=== PATIENT | male | born 1955 | race Caucasian/White ===

== ENCOUNTER → 2018-09-01 | Outpatient (CLI) | payer BC | LOC: OD 10:50 | PROVIDERS: ATTEND Otolaryngology | DX: J30.9 Allergic rhinitis, unspecified (principal) | CPT/HCPCS: 36415; 82785; 86003 ==

== ENCOUNTER 2018-11-14 06:06 | Observation (INO) | payer BC ==
[2018-11-14] MEDS ORDERED: ASPIRIN 81 MG TABLET, CHEWABLE PO ONE (06:23)
--- NOTE | 2018-11-14 06:33 | ER Document Report ---
ED General - General Chief Complaint: Chest Pain Stated Complaint: CHEST PAIN Time Seen by Provider: 11/14/18 06:28 Primary Care Provider: KRISTEN TRINH DO [ASSOCIATE] - Follow up as needed TRAVEL OUTSIDE OF THE [place] IN LAST 30 DAYS: No - HPI Patient complains to provider of: chest pain Notes: 63-year-old male presents with now resolved 8/10 crushing chest pain radiated to his left jaw and left arm. The pain woke him from sleep. Was associated with shortness of breath and diaphoresis. Denies nausea or vomiting. At this time patient states he is pain-free assistance resolved. Patient has history of hypertension, no diabetes, no hyperlipidemia, history of tobacco use. Family history of myocardial infarctions. - Related Data Allergies/Adverse Reactions: lisinopril Allergy (Severe, Verified 11/14/18 06:34) Anaphylaxis amlodipine [From Norvasc] Allergy (Intermediate, Verified 11/14/18 06:34) Past Medical History - Social History Smoking Status: Former Smoker Family History: Reviewed & Not Pertinent - Past Medical History Cardiac Medical History: Reports: Hx Hypertension Endocrine Medical History: Reports: Hx Hypothyroidism Review of Systems - Review of Systems Notes: REVIEW OF SYSTEMS: CONSTITUTIONAL: -fevers, -chills EENT: -eye pain, -difficulty swallowing, -nasal congestion CARDIOVASCULAR: positive chest pain diaphoresis RESPIRATORY: -cough, -SOB GASTROINTESTINAL: -abdominal pain, -nausea, -vomiting, -diarrhea GENITOURINARY: -dysuria, -hematuria MUSCULOSKELETAL: -back pain, -neck pain SKIN: -rash or skin lesions. HEMATOLOGIC: -easy bruising or bleeding. LYMPHATIC: -swollen, enlarged glands. NEUROLOGICAL: -altered mental status or loss of consciousness, -headache, - neurologic symptoms PSYCHIATRIC: -anxiety, -depression. ALL OTHER SYSTEMS REVIEWED AND NEGATIVE. Physical Exam - Vital signs Vitals: Temp Pulse Resp BP Pulse Ox 98.6 F 70 12 178/110 H 98 11/14/18 06:19 11/14/18 06:19 11/14/18 06:19 11/14/18 06:19 11/14/18 06:19 - Notes Notes: PHYSICAL EXAMINATION: GENERAL: Well-appearing, well-nourished and in no acute distress. HEAD: Atraumatic, normocephalic. EYES: Pupils equal round and reactive to light, extraocular movements intact, sclera anicteric, conjunctiva are normal. ENT: nares patent, oropharynx clear without exudates. Moist mucous membranes. NECK: Normal range of motion, supple without lymphadenopathy LUNGS: Breath sounds clear to auscultation bilaterally and equal. No wheezes rales or rhonchi. HEART: Regular rate and rhythm without murmurs ABDOMEN: Soft, nontender, normoactive bowel sounds. No guarding, no rebound. No masses appreciated. EXTREMITIES: Normal range of motion, no pitting or edema. No cyanosis. NEUROLOGICAL: Cranial nerves grossly intact. Normal speech, normal gait. Norm al sensory and motor exams. PSYCH: Normal mood, normal affect. SKIN: Warm, Dry, normal turgor, no rashes or lesions noted. Course - Re-evaluation Re-evalutation: 11/14/18 06:33 63-year-old man with multiple risk factors for coronary artery disease presents with concerning story for crushing chest pain with radiation to his jaw and left arm 11/14/18 07:33 Patient's EKG is no ischemic changes normal sinus rhythm, no ST elevations or depressions, no pathologic T wave inversions. Recent extensive initial lab work-up unremarkable. Troponin 0 0.045. Patient will be admitted to the hospital for further evaluation of his chest pain - Vital Signs Vital signs: Temp Pulse Resp BP Pulse Ox 98.6 F 70 21 H 148/100 H 94 11/14/18 06:19 11/14/18 06:19 11/14/18 07:01 11/14/18 07:01 11/14/18 07:01 - Laboratory Result Diagrams: 11/14/18 06:30 11/14/18 06:30 Laboratory results interpreted by me: 11/14/18 06:30 Glucose 115 H AST 14 L ALT 20 L Discharge - Discharge Clinical Impression: Chest pain Qualifiers: Chest pain type: unspecified Qualified Code(s): R07.9 - Chest pain, unspecified Condition: Stable Disposition: ADMITTED INPATIENT Admitting Provider: Rachelle (Hospitalist) Unit Admitted: Medical Floor Referrals: KRISTEN TRINH DO [ASSOCIATE] - Follow up as needed
[2018-11-14 06:45] LABS: ABSOLUTE EOSINOPHILS # (AUTO) 0.2 10^3/uL (0.0-0.6); ABSOLUTE LYMPHOCYTES (AUTO) 1.6 10^3/uL (0.5-4.7); ABSOLUTE MONOCYTES (AUTO) 0.4 10^3/uL (0.1-1.4); ABSOLUTE NEUT (AUTO) 4.1 10^3/uL (1.7-8.2); BASOPHILS % (AUTO) 0.5 % (0-2); EOSINOPHILS % (AUTO) 2.7 % (0-6); HEMATOCRIT 43.4 % (37.9-51.0); HEMOGLOBIN 15.1 g/dL (13.5-17.0); LYMPHOCYTES % (AUTO) 25.7 % (13-45); MEAN CORPUSCULAR HEMOGLOBIN 32.6 pg (27.0-33.4); MEAN CORPUSCULAR HGB CONC 34.7 g/dL (32.0-36.0); MEAN CORPUSCULAR VOLUME 94 fl (80-97); PLATELET COUNT 215 10^3/uL (150-450); RED BLOOD COUNT 4.62 10^6/uL (4.35-5.55); RED CELL DISTRIBUTION WIDTH 13.8 % (11.5-14.0); SEGMENTED NEUTROPHILS % (AUTO) 65.1 % (42-78); TOTAL CELLS COUNTED % (AUTO) 100 %; WHITE BLOOD COUNT 6.3 10^3/uL (4.0-10.5)
[2018-11-14 06:59] LABS: ALANINE AMINOTRANSFERASE 20 U/L (21-72); ALKALINE PHOSPHATASE 67 U/L (38-126); ANION GAP 10 (5-19); ASPARTATE AMINO TRANSFERASE 14 U/L (17-59); BILIRUBIN,DIRECT 0.2 mg/dL (0.0-0.4); BILIRUBIN,TOTAL 0.4 mg/dL (0.2-1.3); BLOOD UREA NITROGEN 19 mg/dL (7-20); CALCIUM 9.6 mg/dL (8.4-10.2); CARBON DIOXIDE 28 mmol/L (22-30); CHLORIDE 102 mmol/L (98-107); CREATINE KINASE 66 U/L (55-170); GLUCOSE 115 mg/dL (75-110); POTASSIUM 3.7 mmol/L (3.6-5.0); SODIUM 140.3 mmol/L (137-145); TOTAL PROTEIN 7.2 g/dL (6.3-8.2)
--- NOTE | 2018-11-14 07:07 | RADIOLOGY REPORT (SQ) ---
EXAM DESCRIPTION: XR CHEST 1 VIEW COMPLETED DATE/TME: 11/14/2018 06:23 CLINICAL HISTORY: 63 years Male, CP COMPARISON: None. NUMBER OF VIEWS/TECHNIQUE: 1/AP FINDINGS: Adequate lung volume, clear parenchyma, normal cardiac silhouette, and intact bony thorax. IMPRESSION: No acute cardiopulmonary findings.
[2018-11-14 07:10] LABS: CREATINE KINASE MB 1.07 ng/mL (<4.55)
[2018-11-14 07:12] LABS: TROPONIN I 0.045 ng/mL
--- NOTE | 2018-11-14 07:56 | EKG REPORT ---
SEVERITY:- ABNORMAL ECG - SINUS RHYTHM LVH WITH SECONDARY REPOLARIZATION ABNORMALITY : Confirmed by: Edmond De La Torre MD 14-Nov-2018 07:55:55
[2018-11-14] MEDS ORDERED: ASPIRIN 81 MG TABLET, ENT COATED PO SCH (10:00)
[2018-11-14] MEDS ORDERED: METOPROLOL TARTRATE PF/INJ 5 MG/5 ML SDV IV PRN (10:39)
[2018-11-14] MEDS ORDERED: HYDRALAZINE HCL INJ/PF 20 MG/1 ML SDV IV PRN (10:39)
[2018-11-14] MEDS ORDERED: TRIAMTERENE PO SCH (10:45)
[2018-11-14] MEDS ORDERED: PROPRANOLOL HCL 60 MG PO SCH (10:45)
[2018-11-14] MEDS ORDERED: HYDROCHLOROTHIAZID PO SCH (10:45)
[2018-11-14] MEDS ORDERED: PANTOPRAZOLE SODIUM 40 MG TABLET.DR PO SCH (11:30)
[2018-11-14] MEDS ORDERED: VERAPAMIL HCL 240 MG TABLET.SA PO SCH (11:30)
[2018-11-14] MEDS ORDERED: LEVOTHYROXINE SODIUM 0.05 MG TABLET PO SCH (11:30)
[2018-11-14] MEDS ORDERED: SERTRALINE HCL 50 MG TABLET PO SCH (12:00)
[2018-11-14] MEDS: PRIMIDONE 50 MG TABLET PO SCH ×2 (12:00→17:54)
[2018-11-14] MEDS ORDERED: TRIAMTERENE/HYDROCHLOROTHIAZIDE 37.5-25 MG TABLET PO SCH (12:00)
--- NOTE | 2018-11-14 12:15 | PDOC H&P ---
History of Present Illness Admission Date/PCP: 11/14/18 08:17 Patient complains of: chest pain History of Present Illness: MELVIN HENRY is a 63 year old male with a PMH HTN, GERD, insomnia. The patient presented to [facility] ED with chest pain. He states he woke up this morning around 0500 with L sided chest pressure radiating to the L shoulder and jaw. The patient states he has never experienced symptoms like this before, so he took 325mg Aspirin and came to the ED. The patient denies diaphoresis, SOB or dyspnea. He endorses nausea and a headache during this episode. Upon arrival to the ED, the patient's EKG showed NSR with evidence of LVH, no infarction or ischemia. CXR is benign. Laboratory studies are completely benign with the exception of troponin (0.045). The patient was given 81mg Aspirin in the ED. upon assessment, the patient is resting comfortably in bed. He endorses very mild (1/5) left-sided chest pain, currently nonradiating. Lungs are clear to auscultation. S1-S2. No evidence of peripheral edema. Plan to admit the patient to the hospital service for chest pain observation. Past Medical History Past Medical History: insomnia Cardiac Medical History: Reports: Hypertension Endocrine Medical History: Reports: Hypothyroidism GI Medical History: Reports: Gastroesophageal Reflux Disease Psychiatric Medical History: Reports: Depression Past Surgical History Past Surgical History: Reports: Tonsillectomy, Other - cholesteatoma. uvulectomy. lumbar surgery Social History Information Source: Patient Lives with: Family Smoking Status: Former Smoker Frequency of Alcohol Use: None Hx Recreational Drug Use: No Drugs: None Hx Prescription Drug Abuse: No - Advance Directive Resuscitation Status: Full Code Family History Family History: CAD, Hypertension, Other - emphysema - father Parental Family History Reviewed: Yes Children Family History Reviewed: Unknown Sibling(s) Family History Reviewed.: Yes Medication/Allergy Home Medications: Lorazepam [Ativan 1 mg Tablet] 1 mg PO QHS 11/14/18 Pantoprazole Sodium [Protonix [address] Tablet] 40 mg PO DAILY 11/14/18 Propranolol HCl [Inderal LA] 60 mg PO DAILY 11/14/18 RX: Ipratropium [place] [Atrovent 0.06% Nasal [place]] 1 spray NASL Q6 11/14/18 RX: Levothyroxine Sodium 50 mcg PO Q6AM 11/14/18 RX: Primidone [Mysoline] 50 mg PO BID 11/14/18 Sertraline HCl [Zoloft] 100 mg PO DAILY 11/14/18 Tamsulosin HCl [Flomax 0.4 mg Cap.sr] 0.8 mg PO QPM 11/14/18 Triamterene/Hydrochlorothiazid [Dyazide 37.5-25 Capsule] 1 cap PO DAILY 11/14/18 Verapamil HCl [Calan Sr 240 mg Tablet.sa] 240 mg PO DAILY 11/14/18 Allergies/Adverse Reactions: lisinopril Allergy (Severe, Verified 11/14/18 06:34) Anaphylaxis amlodipine [From Norvasc] Allergy (Intermediate, Verified 11/14/18 06:34) Review of Systems All systems: reviewed and no additional remarkable complaints except as stated Physical Exam Vital Signs: Temp Pulse Resp BP Pulse Ox 98.1 F 66 18 159/102 H 99 11/14/18 10:16 11/14/18 10:16 11/14/18 10:16 11/14/18 10:16 11/14/18 10:16 Intake & Output 11/13/18 11/14/18 11/15/18 06:59 06:59 06:59 Weight 106.6 kg General appearance: PRESENT: no acute distress, well-developed, well-nourished Head exam: PRESENT: atraumatic Eye exam: PRESENT: conjunctiva pink, PERRLA Mouth exam: PRESENT: moist, tongue midline Neck exam: PRESENT: full ROM Respiratory exam: PRESENT: clear to auscultation geremias, symmetrical, unlabored Cardiovascular exam: PRESENT: RRR Pulses: PRESENT: normal radial pulses, normal dorsalis pedis pul Vascular exam: PRESENT: normal capillary refill GI/Abdominal exam: PRESENT: normal bowel sounds, soft, other - obese. rotund.. ABSENT: distended Rectal exam: PRESENT: deferred Extremities exam: PRESENT: full ROM. ABSENT: pedal edema Musculoskeletal exam: PRESENT: ambulatory, full ROM Neurological exam: PRESENT: alert, awake, oriented to person, oriented to place, oriented to time, oriented to situation Psychiatric exam: PRESENT: appropriate affect Skin exam: PRESENT: dry, intact, normal color Results Laboratory Results: 11/14/18 06:30 11/14/18 06:30 11/14/18 11/14/18 06:30 06:30 WBC 6.3 RBC 4.62 Hgb 15.1 Hct 43.4 MCV 94 MCH 32.6 MCHC 34.7 RDW 13.8 Plt Count 215 Seg Neutrophils % 65.1 Lymphocytes % 25.7 Monocytes % 6.0 Eosinophils % 2.7 Basophils % 0.5 Absolute Neutrophils 4.1 Absolute Lymphocytes 1.6 Absolute Monocytes 0.4 Absolute Eosinophils 0.2 Absolute Basophils 0.0 Sodium 140.3 Potassium 3.7 Chloride 102 Carbon Dioxide 28 Anion Gap 10 BUN 19 Creatinine 1.02 Est GFR ( Amer) > 60 Est GFR (Non-Af Amer) > 60 Glucose 115 H Calcium 9.6 Total Bilirubin 0.4 AST 14 L ALT 20 L Alkaline Phosphatase 67 Total Protein 7.2 Albumin 4.0 11/14/18 11/14/18 06:30 06:30 Creatine Kinase 66 CK-MB (CK-2) 1.07 Troponin I 0.045 Impressions: Chest X-Ray 11/14/18 06:23 IMPRESSION: No acute cardiopulmonary findings. Status: Imported from PACS Assessment and Plan - Diagnosis (1) Chest pain Qualifiers: Chest pain type: unspecified Qualified Code(s): R07.9 - Chest pain, unspecified Is this a current diagnosis for this admission?: Yes Plan: Unclear etiology at this time L chest pressure radiating to L shoulder and jaw CXR benign EKG shows NSR with evidence of LVH Initial Troponin 0.045, continue to trend q6h until it peaks Daily aspirin Home dose anti-hypertensives Previous cardiac catheterization approx. 20 years ago, reports results were normal (2) HTN (hypertension) Qualifiers: Hypertension type: essential hypertension Qualified Code(s): I10 - Essential (primary) hypertension Is this a current diagnosis for this admission?: Yes Plan: PMH HTN Blood pressure well controlled Continue home dose Verapamil, triamterene/HCTZ, propranolol PRN hydralazine for SBP > 170 (4) Hypothyroid Qualifiers: Hypothyroidism type: unspecified Qualified Code(s): E03.9 - Hypothyroidism, unspecified Is this a current diagnosis for this admission?: Yes Plan: PMH HYPOthyroidism Continue home dose Synthroid Check TSH with AM labs (5) BPH (benign prostatic hyperplasia) Qualifiers: Lower urinary tract symptom presence: symptoms present Is this a current diagnosis for this admission?: Yes Plan: PMH BPH Continue home dose Flomax Patient denies difficulty urinating - Time Time Spent with patient: 15-24 minutes Medications reviewed and adjusted accordingly: Yes Anticipated discharge: Home Within: within 48 hours - Inpatient Certification Based on my medical assessment, after consideration of the patient's comorbidities, presenting symptoms, or acuity I expect that the services needed warrant INPATIENT care.: Yes I certify that my determination is in accordance with my understanding of Medicare's requirements for reasonable and necessary INPATIENT services [42 CFR 412.3e].: Yes Medical Necessity: Need For Continuous Telemetry Monitoring
[2018-11-14] MEDS: NITROGLYCERIN 0.4 MG/TAB 25 TAB/BOTTLE SL PRN ×3 (12:54→13:05)
--- NOTE | 2018-11-14 13:26 | PDOC TRANSFER SUMMARY ---
General Admission Date/PCP: 11/14/18 08:17 Admission Date: 11/14/18 Transfer Date: 11/14/18 Accepting Facility: [facility] Accepting Physician: Dr. Blum Resuscitation Status: Full Code - Transfer Diagnosis (1) Chest pain Is this a current diagnosis for this admission?: Yes (2) HTN (hypertension) Is this a current diagnosis for this admission?: Yes (4) Hypothyroid Is this a current diagnosis for this admission?: Yes (5) BPH (benign prostatic hyperplasia) Is this a current diagnosis for this admission?: Yes - Transfer Medications Home Medications: Ipratropium [place] [Atrovent 0.06% Nasal [place]] 1 spray NASL Q6 11/14/18 Levothyroxine Sodium 50 mcg PO Q6AM 11/14/18 Lorazepam [Ativan 1 mg Tablet] 1 mg PO QHS 11/14/18 Pantoprazole Sodium [Protonix [address] Tablet] 40 mg PO DAILY 11/14/18 Primidone [Mysoline] 50 mg PO BID 11/14/18 Propranolol HCl [Inderal LA] 60 mg PO DAILY 11/14/18 Sertraline HCl [Zoloft] 100 mg PO DAILY 11/14/18 Tamsulosin HCl [Flomax 0.4 mg Cap.sr] 0.8 mg PO QPM 11/14/18 Triamterene/Hydrochlorothiazid [Dyazide 37.5-25 Capsule] 1 cap PO DAILY 11/14/18 Verapamil HCl [Calan Sr 240 mg Tablet.sa] 240 mg PO DAILY 11/14/18 Transfer Medications: Current Medications Aspirin (Ecotrin 81 Mg Ec Tablet) 81 mg PO DAILY LARY Stop: 12/14/18 09:59 Last Admin: 11/14/18 12:00 Dose: 81 mg Documented by: Heparin Sodium (Porcine) (Heparin Inj 1,000 Unit/Ml 10 Ml Vial) 4,000 unit IV NOW ONE Stop: 11/14/18 13:11 Hydralazine HCl (Apresoline Inj/Pf 20 Mg/1 Ml Sdv) 10 mg IV Q4HP PRN PRN Reason: Give For Sbp > 170 Stop: 12/14/18 10:38 Heparin Sodium/Dextrose (Heparin Rtu 25,000 Unit/250 Ml D5w Premix) 250 mls @ 0 mls/hr IV CONTINUOUS PRN; Protocol PRN Reason: THIS MED IS NOT "PRN" Stop: 12/14/18 13:09 Levothyroxine Sodium (Synthroid 0.05 Mg Tablet) 0.05 mg PO Q6AM [facility] Stop: 12/14/18 11:29 Last Admin: 11/14/18 12:00 Dose: 0.05 mg Documented by: Lorazepam (Ativan 1 Mg Tablet) 1 mg PO QHS [facility] Stop: 11/21/18 21:59 Metoprolol Tartrate (Lopressor Inj/Pf 5 Mg/5 Ml Sdv) 5 mg IV Q6HP PRN PRN Reason: Give For Sbp > 170 Stop: 12/14/18 10:38 Nitroglycerin (Nitrostat 0.4 Mg (1/150 Gr) Tabs 25/Bottle) 1 tab SL Q5MP PRN PRN Reason: FOR CHEST PAIN X 3 DOSES Stop: 12/14/18 08:00 Last Admin: 11/14/18 13:05 Dose: 1 tab Documented by: Nitroglycerin (Nitrol 2% Ointment 1gm Packet) 1 gm TP NOW ONE Stop: 11/14/18 13:13 Pantoprazole Sodium (Protonix [address] Tablet) 40 mg PO QAM [facility] Stop: 12/14/18 11:29 Last Admin: 11/14/18 12:00 Dose: 40 mg Documented by: Primidone (Mysoline 50 Mg Tablet) 50 mg PO BID [facility] Stop: 12/14/18 11:29 Last Admin: 11/14/18 12:00 Dose: 50 mg Documented by: Propranolol HCl (Inderal 20 Mg Tablet) 20 mg PO Q8 [facility] Stop: 12/14/18 13:59 Sertraline HCl (Zoloft 50 Mg Tablet) 100 mg PO DAILY [facility] Stop: 12/14/18 11:59 Last Admin: 11/14/18 11:59 Dose: Not Given Documented by: Tamsulosin HCl (Flomax 0.4 Mg Cap.Sr) 0.8 mg PO QPM [facility] Stop: 12/14/18 17:59 Triamterene/HCTZ (Maxzide-25 Tablet) 1 tab PO DAILY [facility] Stop: 12/14/18 11:59 Last Admin: 11/14/18 12:01 Dose: 1 tab Documented by: Verapamil HCl (Calan Sr 240 Mg Tablet.Sa) 240 mg PO DAILY [facility] Stop: 12/14/18 11:29 Last Admin: 11/14/18 12:00 Dose: 240 mg Documented by: - Allergies Allergies/Adverse Reactions: lisinopril Allergy (Severe, Verified 11/14/18 06:34) Anaphylaxis amlodipine [From Norvasc] Allergy (Intermediate, Verified 11/14/18 06:34) Hospital Course Hospital Course: H&P: MELVIN HENRY is a 63 year old male with a PMH HTN, GERD, insomnia. The patient presented to [facility] ED with chest pain. He states he woke up this morning around 05 00 with L sided chest pressure radiating to the L shoulder and jaw. The patient states he has never experienced symptoms like this before, so he took 325mg Aspirin and came to the ED. The patient denies diaphoresis, SOB or dyspnea. He endorses nausea and a headache during this episode. Upon arrival to the ED, the patient's EKG showed NSR with evidence of LVH, no infarction or ischemia. CXR is benign. Laboratory studies are completely benign with the exception of troponin (0.045). The patient was given 81mg Aspirin in the ED. upon assessment, the patient is resting comfortably in bed. He endorses very mild (1/5) left-sided chest pain, currently nonradiating. Lungs are clear to auscultation. S1-S2. No evidence of peripheral edema. Plan to admit the patient to the hospital service for chest pain observation. HOSPITAL COURSE: 63 y.o. M with a PMH of HTN, GERD and insomnia presented to [facility] with chest pain. He was admitted to the hospitalist service for chest pain and borderline (+) troponin 0.045. The patient continued to endorse mild chest pain (rates it 1/5). He is offered SL Nitro for his chest pain. The patient's 2nd troponin was elevated from 0.045-->1.7. [facility]iology was contacted and they agree that the patient should be transferred to their facility for a cardiac catheterization. In the meantime, will start patient on a heparin gtt. Will initiate 1Gm N1itro paste, if chest pain is not relieved, will switch to Nitroglycerin gtt. Dr. Barros (fellow) of [facility] cardiology graciously accepted the patient on behalf of Dr. Blum (attending). Physical Exam Vital Signs: Temp Pulse Resp BP Pulse Ox 98.1 F 66 18 159/102 H 99 11/14/18 10:16 11/14/18 10:16 11/14/18 10:16 11/14/18 10:16 11/14/18 10:16 Intake & Output 11/13/18 11/14/18 11/15/18 06:59 06:59 06:59 Weight 106.6 kg General appearance: PRESENT: morbidly obese Eye exam: PRESENT: conjunctiva pink, PERRLA Mouth exam: PRESENT: moist, tongue midline Neck exam: PRESENT: full ROM Respiratory exam: PRESENT: clear to auscultation geremias, symmetrical, unlabored Cardiovascular exam: PRESENT: RRR Pulses: PRESENT: normal radial pulses, normal dorsalis pedis pul Vascular exam: PRESENT: normal capillary refill GI/Abdominal exam: PRESENT: soft, other - obese/rotund. ABSENT: distended, tenderness Rectal exam: PRESENT: deferred Extremities exam: PRESENT: full ROM. ABSENT: pedal edema Musculoskeletal exam: PRESENT: ambulatory, full ROM Neurological exam: PRESENT: alert, awake, oriented to person, oriented to place, oriented to time, oriented to situation Psychiatric exam: PRESENT: appropriate affect Skin exam: PRESENT: dry, intact, normal color Results Laboratory Results: 11/14/18 06:30 11/14/18 06:30 11/14/18 11/14/18 06:30 06:30 WBC 6.3 RBC 4.62 Hgb 15.1 Hct 43.4 MCV 94 MCH 32.6 MCHC 34.7 RDW 13.8 Plt Count 215 Seg Neutrophils % 65.1 Lymphocytes % 25.7 Monocytes % 6.0 Eosinophils % 2.7 Basophils % 0.5 Absolute Neutrophils 4.1 Absolute Lymphocytes 1.6 Absolute Monocytes 0.4 Absolute Eosinophils 0.2 Absolute Basophils 0.0 Sodium 140.3 Potassium 3.7 Chloride 102 Carbon Dioxide 28 Anion Gap 10 BUN 19 Creatinine 1.02 Est GFR ( Amer) > 60 Est GFR (Non-Af Amer) > 60 Glucose 115 H Calcium 9.6 Total Bilirubin 0.4 AST 14 L ALT 20 L Alkaline Phosphatase 67 Total Protein 7.2 Albumin 4.0 11/14/18 11/14/18 11/14/18 06:30 06:30 11:14 Creatine Kinase 66 CK-MB (CK-2) 1.07 Troponin I 0.045 1.730 Impressions: Chest X-Ray 11/14/18 06:23 IMPRESSION: No acute cardiopulmonary findings. Status: Imported from PACS
[2018-11-14] MEDS ORDERED: ACETAMINOPHEN 325 MG TABLET PO ONE (13:45)
[2018-11-14] MEDS ORDERED: HEPARIN SODIUM,PORCINE/D5W 25,000 UNIT/250 ML RTUINJ IV PRN (13:45)
[2018-11-14] MEDS ORDERED: HEPARIN SOD (PORCINE) 1,000 UNIT/ML 10 ML VIAL IV ONE (13:45)
[2018-11-14] MEDS ORDERED: NITROGLYCERIN 2% OINTMENT 1 GM PACKET TP ONE (13:45)
[2018-11-14] MEDS: PROPRANOLOL HCL 20 MG TABLET PO SCH ×2 (14:33→21:26)
[2018-11-14] MEDS ORDERED: TAMSULOSIN HCL 0.4 MG CAP.SR.24H PO SCH (18:00)
[2018-11-14] MEDS ORDERED: ACETAMINOPHEN 325 MG TABLET PO PRN (20:40)
[2018-11-14] MEDS ORDERED: ACETAMINOPHEN 325 MG TABLET ONE (20:40)
[2018-11-14 21:11] VITALS: BP 127/89
[2018-11-14] MEDS ORDERED: LORAZEPAM 1 MG TABLET PO SCH (22:00)
== END 2018-11-14 23:15 | disposition short-term general hospital (02) ==
LOC: ER 06:06 → INTOOBSV 08:17 → EH 08:17 → 4N 10:05
PROVIDERS: ADMIT Internal Medicine; ATTEND Internal Medicine
DX: R07.89 Other chest pain (principal); I10 Essential (primary) hypertension; E03.9 Hypothyroidism, unspecified; N40.1 Benign prostatic hyperplasia with lower urinary tract symptoms; E66.01 Morbid (severe) obesity due to excess calories; R11.0 Nausea; R51 Headache; R06.02 Shortness of breath; R61 Generalized hyperhidrosis; K21.9 Gastro-esophageal reflux disease without esophagitis; Z79.899 Other long term (current) drug therapy; Z82.49 Family history of ischemic heart disease and other diseases of the circulatory system; Z83.6 Family history of other diseases of the respiratory system; Z87.891 Personal history of nicotine dependence
CPT/HCPCS: 93005; 99285; 36415; 82553; 82550; 85025; 85730; 80053; 84484; 71045; 93010; G0378 ×2; J1644 ×2; J3490 ×4